=== PATIENT | female | born 1995 | race Caucasian/White ===

== ENCOUNTER 2019-09-12 22:42 | Emergency (ER) | payer OTHER ==
[~2019-09-12] VITALS: Ht 160 cm; Wt 56.7 kg
[2019-09-12 23:38] LABS: BASOPHILS % (AUTO) 1.1 % (0.0-2.0); EOSINOPHILS # (AUTO) 0.1 K/uL (0.0-0.7); HEMATOCRIT 25.8 % (31.2-41.9); HEMOGLOBIN 8.5 g/dL (10.9-14.3); LYMPHOCYTES % (AUTO) 26.8 % (20.5-51.5); MEAN CORPUSCULAR HGB CONC 33 g/dL (32.3-35.6); MEAN CORPUSCULAR VOLUME 78.8 fL (75.5-95.3); MONOCYTES # (AUTO) 0.2 K/uL (2.0-10.0); MONOCYTES % (AUTO) 4.9 % (0.0-11.0); NEUTROPHILS # (AUTO) 2.5 K/uL (1.8-8.9); NEUTROPHILS % (AUTO) 64.2 % (38.5-71.5); PLATELET COUNT (AUTO) 157 K/uL (179-408); RED BLOOD CELL COUNT(AUTO) 3.28 MIL/uL (3.63-4.92); WHITE BLOOD COUNT (AUTO) 3.9 K/uL (3.8-11.8)
[2019-09-12 23:47] LABS: CREATININE 0.7 mg/dL (0.6-1.3); POTASSIUM 3.6 mmol/L (3.5-5.1)
[2019-09-12 23:52] LABS: BILIRUBIN,DIRECT 0.1 mg/dL (0.0-0.2); BILIRUBIN,TOTAL 0.3 mg/dL (0.2-1.0); TOTAL PROTEIN, SERUM 7.1 g/dL (6.4-8.2)
[2019-09-13 00:28] LABS: *BILIRUBIN,URIN 1+ (NEGATIVE); *BLOOD, URINE 3+ (NEGATIVE); *CLARITY,URINE CLOUDY (CLEAR); *KETONES,URINE TRACE (NEGATIVE); LEUKOCYTE ESTERASE ,URINE NEGATIVE (NEGATIVE); NITRITE, URINE NEGATIVE (NEGATIVE); PH,URINE 5.5 (5.0-8.0); UGLUCOSE NEGATIVE (NEGATIVE)
[2019-09-13 00:42] LABS: *COLOR,URINE BLOODY (YELLOW)
[2019-09-13 00:43] LABS: *URINE HCG, QUAL NEGATIVE (NEGATIVE); BACTERIA,URINE NONE SEEN /HPF (NONE SEEN); RBC,URINE TNTC /HPF (0-3); SQUAMOUS EPITHELIAL CELL,UR FEW /HPF (NONE SEEN); WBC,URINE 0-3 /HPF (0-3)
--- NOTE | 2019-09-13 00:55 | NUR ---
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
--- NOTE | 2019-09-13 00:56 | NUR ---
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
--- NOTE | 2019-09-13 01:47 | NUR ---
Patient discharged to home in stable conditon. Written and verbal after care instructions given. Patient verbalizes understanding of instructions. AMBULATORY W/ STABLE GAIT ALL BELONGINGS W/ PT
[2019-09-13 01:48] VITALS: BP 154/89
== END 2019-09-13 01:48 | disposition home or self-care (01) ==
LOC: ER 22:42
DX: N93.9 Abnormal uterine and vaginal bleeding, unspecified (principal); N83.202 Unspecified ovarian cyst, left side; Z88.1 Allergy status to other antibiotic agents; Z79.899 Other long term (current) drug therapy
CPT/HCPCS: 36415; 76856; 84703; 85025; 86850; 86900; 86901; A4663

== ENCOUNTER 2021-09-06 19:14 | Emergency (ER) | payer OTHER ==
[~2021-09-06] VITALS: Ht 162.6 cm; Wt 68.0 kg
[~2021-09-06 19:14] MED LIST: VERA80TA7 PO
--- NOTE | 2021-09-06 20:35 | NUR ---
PATIENT C/O LEFT EARACHE 2 WEEIKS WITH DRAINING WOUNON ON HEAD THAT STARTED 2 WEEKS ALSO.
--- NOTE | 2021-09-06 20:50 | NUR ---
Dr. Duncan on bedside for MSE.
[2021-09-06] MEDS ORDERED: FLUCONAZOLE 100 MG TABLET PO ONE (21:00)
[2021-09-06] MEDS ORDERED: CEphaleXIN 500 MG CAPSULE PO ONE (21:00)
[2021-09-06] MEDS ORDERED: CEPH500T PO (21:01)
[2021-09-06] MEDS ORDERED: FLUC200T PO (21:01)
[2021-09-06] MEDS ORDERED: CEphaleXIN 500 MG CAPSULE ONE (21:04)
[2021-09-06] MEDS ORDERED: FLUCONAZOLE 100 MG TABLET ONE (21:04)
[2021-09-06 21:14] VITALS: BP 130/88
--- NOTE | 2021-09-06 21:14 | NUR ---
Patient discharged to home in stable condition. Written and verbal after care instructions given. Patient verbalizes understanding of instructions. Stressed follow up or return to ER for worsening s/s. Patient ambulated fr the ER with steady gait. All belongings with patient.
== END 2021-09-06 21:15 | disposition home or self-care (01) ==
LOC: ER 19:36
DX: B35.0 Tinea barbae and tinea capitis (principal); L01.00 Impetigo, unspecified; Z88.1 Allergy status to other antibiotic agents
CPT/HCPCS: A4663